=== PATIENT | female | born 1985 | race Caucasian/White ===

== ENCOUNTER 2018-09-03 19:59 | Emergency (ER) | payer BC, OTHER ==
[2018-09-03 20:13] VITALS: BP 116/63
--- NOTE | 2018-09-03 21:30 | RADIOLOGY REPORT (SQ) ---
3 VIEWS OF THE RIGHT FOOT AND HISTORY: Fall . COMPARISON: None. FINDINGS: The bone mineralization is normal. No acute fracture is seen. There are bipartite medial and lateral hallux sesamoids. No focal soft tissue swelling is identified. IMPRESSION: No acute fracture or malalignment.
--- NOTE | 2018-09-03 21:31 | RADIOLOGY REPORT (SQ) ---
EXAM DESCRIPTION: AP and lateral views of the right femur AP, lateral and axial views of the right knee CLINICAL HISTORY: 33 years Female, fall COMPARISON: None. FINDINGS: No fracture or dislocation. Soft tissues are unremarkable. IMPRESSION: No acute abnormality.
[2018-09-03] MEDS ORDERED: TRAMADOL HCL 50 MG TABLET PO ONE (21:46)
--- NOTE | 2018-09-03 22:06 | ER Document Report ---
ED General - General Chief Complaint: Knee Injury Stated Complaint: FELL ON RIGHT KNEE Time Seen by Provider: 09/03/18 20:32 TRAVEL OUTSIDE OF THE [place] IN LAST 30 DAYS: No - HPI Patient complains to provider of: Right femur right knee right foot pain Notes: Patient coming in after a fall twisting motion while holding her 3-year-old patient states that her other child 7-year-old took out her right leg patient states difficulty bearing weight on the right leg at this time but the pain in the foot and knee and hip area. Patient denies any other injuries - Related Data Allergies/Adverse Reactions: No Known Allergies Allergy (Unverified 09/03/18 20:03) Past Medical History - Social History Smoking Status: Current Every Day Smoker Chew tobacco use (# tins/day): No Frequency of alcohol use: None Drug Abuse: None Family History: Reviewed & Not Pertinent Patient has suicidal ideation: No Patient has homicidal ideation: No Renal/ Medical History: Denies: Hx Peritoneal Dialysis Review of Systems - Review of Systems Constitutional: No symptoms reported EENT: No symptoms reported Cardiovascular: No symptoms reported Respiratory: No symptoms reported Gastrointestinal: No symptoms reported Genitourinary: No symptoms reported Female Genitourinary: No symptoms reported Musculoskeletal: Other - Right leg pain Skin: No symptoms reported Hematologic/Lymphatic: No symptoms reported Neurological/Psychological: No symptoms reported -: Yes All other systems reviewed and negative Physical Exam - Vital signs Vitals: Temp Pulse Resp BP Pulse Ox 98.1 F 96 18 116/63 98 09/03/18 20:12 09/03/18 20:12 09/03/18 20:12 09/03/18 20:12 09/03/18 20:12 Interpretation: Normal - General General appearance: Appears well, Alert - HEENT Head: Normocephalic, Atraumatic Eyes: Normal Pupils: PERRL - Respiratory Respiratory status: No respiratory distress Chest status: Nontender Breath sounds: Normal Chest palpation: Normal - Cardiovascular Rhythm: Regular Heart sounds: Normal auscultation Murmur: No - Abdominal Inspection: Normal Distension: No distension Bowel sounds: Normal Tenderness: Nontender Organomegaly: No organomegaly - Back Back: Normal, Nontender - Extremities General upper extremity: Normal inspection, Nontender, Normal color, Normal ROM, Normal temperature General lower extremity: Normal inspection, Other - Left leg unaffected. Patient's right leg has tenderness palpation of the hip palpation of the mid femur also palpation of the left knee does elicit pain there is no laxity on valgus varus anterior posterior drawer testing. Patient does not have any tenderness along palpation of the tib-fib or of the medial lateral malleolus. Patient does have significant tenderness to palpation of the midfoot capillary refill dorsalis pedis pulse are intact - Neurological Neuro grossly intact: Yes Cognition: Normal Orientation: AAOx4 [place] Coma Scale Eye Opening: Spontaneous [place] Coma Scale Verbal: Oriented [place] Coma Scale Motor: Obeys Commands [place] Coma Scale Total: 15 Speech: Normal Motor strength normal: LUE, RUE, LLE, RLE Sensory: Normal - Psychological Associated symptoms: Normal affect, Normal mood - Skin Skin Temperature: Warm Skin Moisture: Dry Skin Color: Normal Course - Re-evaluation Re-evalutation: 09/03/18 23:29 X-rays not reveal any signs of acute orthopedic injury or fracture. Recommended treatment with crutches and postop shoe Ultram for pain relief along with Tylenol and Motrin patient also educated about use of ice and heat patient will be discharged home - Vital Signs Vital signs: Temp Pulse Resp BP Pulse Ox 98.1 F 96 18 116/63 98 09/03/18 20:12 09/03/18 20:12 09/03/18 20:12 09/03/18 20:12 09/03/18 20:12 Discharge - Discharge Clinical Impression: Leg pain Qualifiers: Laterality: right Qualified Code(s): M79.604 - Pain in right leg Foot pain Qualifiers: Laterality: right Qualified Code(s): M79.671 - Pain in right foot Condition: Good Disposition: HOME, SELF-CARE Instructions: Use of Crutches ([facility]), Exercises for the Foot Muscles ([facility]), Ice & Elevation ([facility]), Oral Narcotic Medication ([facility]), Sprain ([facility]) Additional Instructions: Your x-rays tonight did not show any signs of fracture. I would recommend wearing the orthopedic shoe while out in public or a good tight fitting pair of boots or tennis shoes. Take pain medication as prescribed Return to ER symptoms worsen if you are still having significant pain in 5-7 days I would recommend another x-ray of your foot knee and leg Prescriptions: Ibuprofen [Motrin 600 mg Tablet] 600 mg PO Q8HP PRN #21 tablet PRN Reason: Tramadol HCl [Ultram 50 mg Tablet] 50 mg PO ASDIR PRN #20 tablet PRN Reason: Forms: Return to Work Referrals: WILL PA MD [Primary Care Provider] - Follow up as needed
== END 2018-09-03 22:39 | disposition home or self-care (01) ==
LOC: ER 19:59
DX: M79.604 Pain in right leg (principal); M79.671 Pain in right foot; M25.561 Pain in right knee; W19.XXXA Unspecified fall, initial encounter; F17.200 Nicotine dependence, unspecified, uncomplicated
CPT/HCPCS: 99283

== ENCOUNTER 2019-02-17 22:13 | Emergency (ER) | payer BC, OTHER ==
[2019-02-18] MEDS ORDERED: CLINDAMYCIN HCL 150 MG CAPSULE PO ONE (02:00)
--- NOTE | 2019-02-18 02:02 | ER Document Report ---
ED General - General Chief Complaint: Ankle Swelling Stated Complaint: FOOT SWELLING/POSSIBLE SPIDER BITE Time Seen by Provider: 02/18/19 01:22 Primary Care Provider: WILL PA MD [Primary Care Provider] - Follow up as needed Notes: Patient is a 33-year old female with past medical history of hypothyroidism who presents with 24 hours of increasing swelling and discomfort to the posterior aspect of her right ankle. Patient states that her shoes were rubbing on the back of her ankle while she was at work, caused a skin avulsion to the area. She states that she subsequently developed increasing redness and swelling to the area and now has a constant, throbbing, aching discomfort to the area. Worsened by touching the area or walking. Nothing improves the pain. Denies history of similar symptoms in the past. No fever or constitutional symptoms. Has not seen her general physician regarding today's concerns. TRAVEL OUTSIDE OF THE [place] IN LAST 30 DAYS: No - Related Data Allergies/Adverse Reactions: No Known Allergies Allergy (Unverified 09/03/18 20:03) Past Medical History - General Information source: Patient - Social History Smoking Status: Never Smoker Frequency of alcohol use: None Drug Abuse: None Lives with: Spouse/Significant other Family History: Reviewed & Not Pertinent Renal/ Medical History: Denies: Hx Peritoneal Dialysis Review of Systems - Review of Systems Notes: Constitutional: Negative for fever. HENT: Negative for sore throat. Eyes: Negative for visual changes. Cardiovascular: Negative for chest pain. Respiratory: Negative for shortness of breath. Gastrointestinal: Negative for abdominal pain, vomiting or diarrhea. Genitourinary: Negative for dysuria. Musculoskeletal: Negative for back pain. Skin: Positive for rash. Neurological: Negative for headaches, weakness or numbness. 10 point ROS negative except as marked above and in HPI. Physical Exam - Vital signs Vitals: Temp Pulse Resp BP Pulse Ox 97.9 F 95 18 108/52 L 98 02/17/19 22:45 02/17/19 22:45 02/17/19 22:45 02/17/19 22:45 02/17/19 22:45 Interpretation: Normal Notes: PHYSICAL EXAMINATION: GENERAL: Well-appearing, well-nourished and in no acute distress. HEAD: Atraumatic, normocephalic. EYES: Pupils equal round and reactive to light, extraocular movements intact, sclera anicteric, conjunctiva are normal. ENT: nares patent, oropharynx clear without exudates. Moist mucous membranes. NECK: Normal range of motion, supple without lymphadenopathy LUNGS: Breath sounds clear to auscultation bilaterally and equal. No wheezes rales or rhonchi. HEART: Regular rate and rhythm without murmurs ABDOMEN: Soft, nontender, normoactive bowel sounds. No guarding, no rebound. No masses appreciated. EXTREMITIES: Normal range of motion including at the ankle with normal dorsi and plantar flexion, no pitting or edema. No cyanosis. NEUROLOGICAL: No focal neurological deficits. Moves all extremities spontaneously and on command. PSYCH: Normal mood, normal affect. SKIN: Warm, Dry, normal turgor, there is approximately a 3 x 4 cm area of erythema over the Achilles tendon region of the right foot. Course - Re-evaluation Re-evalutation: 02/18/19 02:01 Patient presents with symptoms most consistent with an acute cellulitis. Vitals within normal limits. Patient does not meet sepsis criteria is overall very well in appearance. Exam and history are not consistent with DVT. Patient will be started on coverage for both staph and strep. At this time will discharge with return precautions and follow-up recommendations. Verbal discharge instructions given a the bedside and opportunity for questions given. Medication warnings reviewed. Patient is in agreement with this plan and has verbalized understanding of return precautions and the need for primary care follow-up in the next 24-72 hours. - Vital Signs Vital signs: Temp Pulse Resp BP Pulse Ox 98.1 F 75 17 96/54 L 99 02/18/19 02:23 02/18/19 02:23 02/18/19 02:23 02/18/19 02:23 02/18/19 02:23 Discharge - Discharge Clinical Impression: Cellulitis of right ankle Condition: Good Disposition: HOME, SELF-CARE Additional Instructions: The rash is likely due to infection of your skin. You need to take the antibiotics as prescribed. Do not stop even if the rash goes away until you have completed all the antibiotics. You should also return if you develop fevers with temperature greater than 101, persistent vomiting, worsening pain, rapidly spreading redness, or have any other symptoms that are concerning to you. Follow-up with your doctor within the next 24 to 48 hours. Prescriptions: Clindamycin HCl 300 mg PO TID #21 capsule Forms: Return to Work Referrals: WILL PA MD [Primary Care Provider] - Follow up as needed
[2019-02-18 02:24] VITALS: BP 96/54
== END 2019-02-18 02:23 | disposition home or self-care (01) ==
LOC: ER 22:13
DX: L03.115 Cellulitis of right lower limb (principal); M25.471 Effusion, right ankle
CPT/HCPCS: 99283

== ENCOUNTER 2020-07-21 18:52 | Emergency (ER) | payer BC, OTHER ==
[2020-07-21] MEDS ORDERED: IBUPROFEN 600 MG TABLET PO ONE (19:22)
--- NOTE | 2020-07-21 19:26 | ER Document Report ---
ED Medical Screen (RME) - General Stated Complaint: CHEST PAIN, FINGER NUMBNESS Time Seen by Provider: 07/21/20 19:19 Primary Care Provider: WILL PA MD [Primary Care Provider] - Follow up as needed Mode of Arrival: Ambulatory Information source: Patient Notes: Patient is a 35-year-old female with history of tobacco abuse and family history of early heart disease. Comes in today with an atraumatic pain in the left shoulder that radiates down to the left hand. Now is in the left side of the chest radiating towards the center and the neck. Some associated shortness of breath. General exam: Anxious Cardiac regular rate and rhythm Pulmonary no respiratory distress Extremities without swelling or erythema or tenderness I have greeted and performed a rapid initial assessment of this patient. A comprehensive ED assessment and evaluation of the patient, analysis of test results and completion of the medical decision making process will be conducted by additional ED providers. TRAVEL OUTSIDE OF THE [place] IN LAST 30 DAYS: No - Related Data Allergies/Adverse Reactions: No Known Allergies Allergy (Verified 02/18/19 07:07) Past Medical History Renal/ Medical History: Denies: Hx Peritoneal Dialysis Past Surgical History: Reports: Hx Section Doctor's Discharge - Discharge Referrals: WILL PA MD [Primary Care Provider] - Follow up as needed
[2020-07-21 20:08] LABS: ABSOLUTE BASOPHILS # (AUTO) 0.1 10^3/uL (0.0-0.2); ABSOLUTE EOSINOPHILS # (AUTO) 0.4 10^3/uL (0.0-0.6); ABSOLUTE LYMPHOCYTES (AUTO) 1.8 10^3/uL (0.5-4.7); ABSOLUTE MONOCYTES (AUTO) 0.7 10^3/uL (0.1-1.4); ABSOLUTE NEUT (AUTO) 5.5 10^3/uL (1.7-8.2); BASOPHILS % (AUTO) 1.1 % (0-2); EOSINOPHILS % (AUTO) 5.2 % (0-6); HEMATOCRIT 35.8 % (36.0-47.0); HEMOGLOBIN 12.1 g/dL (12.0-15.5); LYMPHOCYTES % (AUTO) 20.7 % (13-45); MEAN CORPUSCULAR HGB CONC 33.8 g/dL (32.0-36.0); MEAN CORPUSCULAR VOLUME 83 fl (80-97); MONOCYTES % (AUTO) 8.6 % (3-13); PLATELET COUNT 316 10^3/uL (150-450); RED BLOOD COUNT 4.32 10^6/uL (3.72-5.28); RED CELL DISTRIBUTION WIDTH 15.8 % (11.5-14.0); SEGMENTED NEUTROPHILS % (AUTO) 64.4 % (42-78); TOTAL CELLS COUNTED % (AUTO) 100 %; WHITE BLOOD COUNT 8.5 10^3/uL (4.0-10.5)
--- NOTE | 2020-07-21 20:27 | RADIOLOGY REPORT (SQ) ---
EXAM DESCRIPTION: Site: RP: XR CHEST 1 VIEW CLINICAL HISTORY: 35 years Female; cp; COMPARISON: None. FINDINGS: Lungs: Lungs are clear, with no focal infiltrate, pneumothorax, or pleural effusion. Mediastinum: Mediastinum is within normal limits for this positioning. Bones: Bony structures are unremarkable. IMPRESSION: 1. No acute pulmonary findings.
[2020-07-21 20:29] LABS: ALBUMIN 4.3 g/dL (3.5-5.0); ALKALINE PHOSPHATASE 63 U/L (38-126); ANION GAP 10 (5-19); ASPARTATE AMINO TRANSFERASE 18 U/L (14-36); BILIRUBIN,TOTAL 0.4 mg/dL (0.2-1.3); BLOOD UREA NITROGEN 14 mg/dL (7-20); CALCIUM 9.6 mg/dL (8.4-10.2); CARBON DIOXIDE 30 mmol/L (22-30); CHLORIDE 100 mmol/L (98-107); CREATINE KINASE 44 U/L (30-135); GLUCOSE 104 mg/dL (75-110); POTASSIUM 4.3 mmol/L (3.6-5.0)
[2020-07-21 20:41] LABS: CREATINE KINASE MB < 0.22 ng/mL (<4.55); TROPONIN I < 0.012 ng/mL
--- NOTE | 2020-07-21 22:45 | EKG REPORT ---
SEVERITY:- NORMAL ECG - SINUS RHYTHM : Confirmed by: Morenita Hernandez 21-Jul-2020 22:45:28
[2020-07-22 02:39] VITALS: BP 108/57
== END 2020-07-22 03:50 | disposition left against medical advice (07) ==
LOC: ER 18:52
DX: R07.9 Chest pain, unspecified (principal); R06.02 Shortness of breath; M25.512 Pain in left shoulder; Z53.20 Procedure and treatment not carried out because of patient's decision for unspecified reasons; Z82.49 Family history of ischemic heart disease and other diseases of the circulatory system
CPT/HCPCS: 36415; 71045; 80053; 82550; 82553; 83690; 84484; 84703; 85025; 93005; 93010; 99281